=== PATIENT | female | born 1955 | race Asian ===

== ENCOUNTER 2016-09-13 16:52 | Inpatient (IN) | payer MEDICARE, OTHER ==
[~2016-09-13] VITALS: Ht 152.4 cm; Wt 59.0 kg
[2016-09-13] MEDS ORDERED: INSU100C6 SQ (17:11)
[2016-09-13] MEDS ORDERED: METF500T4 PO (17:11)
[2016-09-13] MEDS ORDERED: LOSA50TA37 PO (17:11)
[2016-09-13] MEDS ORDERED: CARV6 PO (17:11)
[2016-09-13] MEDS ORDERED: POTA8CAP10 PO (17:11)
[2016-09-13] MEDS ORDERED: FURO40 PO (17:11)
[2016-09-13] MEDS ORDERED: ASPI81 PO (17:11)
[2016-09-13 17:12] LABS: GLUCOSE,POINT OF CARE 190 MG/DL (70-110)
[2016-09-13] MEDS ORDERED: ACETAMINOPHEN 500 MG TABLET PO ONE (17:15)
[2016-09-13 17:27] LABS: APPEARANCE,URINE CLEAR (CLEAR); GLUCOSE, URINE (UA) NEGATIVE (NEGATIVE); KETONES,URINE NEGATIVE (NEGATIVE); LEUKOCYTE ESTERASE ,URINE TRACE (NEGATIVE); OCCULT BLOOD,URINE MODERATE (NEGATIVE); PROTEIN,URINE POS 1+ (NEGATIVE)
[2016-09-13] MEDS ORDERED: SODIUM CHLORIDE 0.9% 1,000 ML IV ONE ×2 (17:45→18:30)
[2016-09-13 17:47] LABS: SQUAMOUS EPITHELIAL CELL,UR Few /LPF (None Seen)
[2016-09-13 17:56] LABS: ANION GAP 12 mmol/L (8-16); CALCIUM, TOTAL 8.8 mg/dL (8.8-10.5); CARBON DIOXIDE 24 mmol/L (22-29); CHLORIDE 101 mmol/L (98-107); CREATININE 0.88 mg/dL (0.60-1.30); GLOMERULAR FILTR. RATE CALC > 60 mL/min (>60); POTASSIUM 4.2 mmol/L (3.5-5.1); SODIUM SERUM 137 mmol/L (136-145); UREA NITROGEN, BLOOD 23 mg/dL (7-18)
[2016-09-13 18:00] LABS: HEMATOCRIT 26.4 % (36-46); HEMOGLOBIN 8.5 g/dL (12.0-16.0); MEAN CORPUSCULAR HEMOGLOBIN 23.4 pg (26.0-34.0); MEAN CORPUSCULAR HGB CONC 32.1 G/dL (31.0-37.0); MEAN CORPUSCULAR VOLUME 73 fL (80-100); PLATELET COUNT (AUTO) 414 K/uL (150-450); RED BLOOD CELL COUNT(AUTO) 3.62 MIL/uL (4.00-5.20); RED CELL DISTRIBUTION WIDTH 17.3 % (11.5-14.5); WHITE BLOOD COUNT (AUTO) 29.6 K/uL (4.5-11.0)
[2016-09-13 18:03] LABS: INFLUENZA TYPE B NEGATIVE FOR TYPE B (NEGATIVE)
[2016-09-13 18:03] LABS: ALANINE AMINOTRANSFERASE 21 U/L (12-78); ALBUMIN 2.2 g/dL (3.4-5.0); ASPARTATE AMINOTRANSFERASE 18 U/L (15-37); BILIRUBIN,TOTAL 0.8 mg/dL (0.1-1.0); TOTAL PROTEIN, SERUM 8.2 g/dL (6.4-8.2)
[2016-09-13] MEDS ORDERED: CefTRIAXone 1 GM/DEXTROSE 50 ML IV ONE (18:30)
[2016-09-13] MEDS ORDERED: AZITHROMYCIN 500 MG/NS 250 ML IV ONE (18:30)
[2016-09-13 18:35] LABS: BAND NEUTROPHILS % (MANUAL) 41 % (1-5); EOSINOPHILS % (MANUAL) 1 % (1-6); LYMPHOCYTES % (MANUAL) 3 % (22-44); METAMYELOCYTES % 2 % (0-0); MYELOCYTES % 3 % (0-0); TOTAL CELLS COUNTED 100
[2016-09-13 18:36] LABS: WBC MORPHOLOGY TOXIC VACUOLATION
[2016-09-13 18:37] LABS: RBC MORPHOLOGY COMMENT ABNORMAL R
[2016-09-13] MEDS ORDERED: 0.9% SODIUM CHLORIDE 10 ML SYRINGE IVP PRN (19:30)
[2016-09-13] MEDS ORDERED: ONDANSETRON HCL 4 MG/2 ML VIAL IVP PRN (19:30)
[2016-09-13] MEDS ORDERED: ACETAMINOPHEN 325 MG TABLET PO PRN (19:30)
[2016-09-13 21:26] VITALS: BP 104/58
[2016-09-13] MEDS ORDERED: PNEUMOCOCCAL VACCINE POLYVALENT 0.5 ML VIAL [PPSV23] IM ONE (21:30)
[2016-09-13 22:17] LABS: GLUCOSE,POINT OF CARE 107 MG/DL (70-110)
[2016-09-13] MEDS ORDERED: DEXTROSE 50%-WATER 25 GM/50 ML SYRINGE IVP PRN (23:30)
[2016-09-14 00:34] VITALS: BP 112/73
[2016-09-14] MEDS ORDERED: 0.9% SODIUM CHLORIDE 10 ML SYRINGE IVP PRN (02:15)
[2016-09-14] MEDS ORDERED: DEXTROSE 50%-WATER 25 GM/50 ML SYRINGE IVP PRN (02:15)
[2016-09-14] MEDS ORDERED: ONDANSETRON HCL 4 MG/2 ML VIAL IVP PRN (02:15)
[2016-09-14] MEDS ORDERED: OxyCODONE HCL/ACETAMINOPHEN 5-325 MG TABLET PO PRN ×2 (02:15)
[2016-09-14] MEDS ORDERED: INSULIN ASPART 100 UNITS/ML SQ PRN (02:15)
[2016-09-14 05:01] VITALS: BP 122/76
[2016-09-14 05:27] LABS: GLUCOSE COMMENT 1 Received Meds; GLUCOSE,POINT OF CARE 134 MG/DL (70-110)
[2016-09-14 07:04] VITALS: BP 112/63
[2016-09-14] MEDS: ASPIRIN 81 MG CHEWABLE TABLET PO SCH (08:22)
[2016-09-14] MEDS: POTASSIUM CHLORIDE 8 MEQ ER TABLET PO SCH ×2 (08:22→21:00)
[2016-09-14] MEDS: CARVEDILOL 6.25 MG TABLET PO SCH ×2 (08:22→21:00)
[2016-09-14] MEDS: DOCUSATE SODIUM 100 MG CAPSULE PO SCH ×2 (08:22→21:00)
[2016-09-14] MEDS: PANTOPRAZOLE SODIUM 40 MG/VIAL IVP SCH (08:23)
[2016-09-14] MEDS ORDERED: FUROSEMIDE 40 MG TABLET PO SCH (09:00)
[2016-09-14] MEDS ORDERED: LOSARTAN POTASSIUM 50 MG TABLET PO SCH (09:00)
[2016-09-14] MEDS ORDERED: SODIUM CHLORIDE 0.9% 1,000 ML IV ONE (09:15)
[2016-09-14 11:20] VITALS: BP 102/48
[2016-09-14] MEDS: INSULIN ASPART 100 UNITS/ML SQ PRN ×2 (14:10→17:53)
[2016-09-14 14:57] LABS: GLUCOSE,POINT OF CARE 90 MG/DL (70-110)
[2016-09-14 15:36] VITALS: BP 122/64
[2016-09-14] MEDS: CefTRIAXone 1 GM/DEXTROSE 50 ML IV SCH (17:41)
[2016-09-14 18:02] LABS: GLUCOSE,POINT OF CARE 136 MG/DL (70-110)
[2016-09-14] MEDS: AZITHROMYCIN 500 MG/NS 250 ML IV SCH (18:23)
[2016-09-14 19:33] VITALS: BP 98/58
[2016-09-14 22:57] LABS: GLUCOSE,POINT OF CARE 138 MG/DL (70-110)
[2016-09-15] VITALS (7 sets, daily range): BP systolic 120–142; BP diastolic 65–89
[2016-09-15 05:18] LABS: GLUCOSE,POINT OF CARE 113 MG/DL (70-110)
[2016-09-15 06:47] LABS: HEMATOCRIT 22.8 % (36-46); HEMOGLOBIN 7.7 g/dL (12.0-16.0); MEAN CORPUSCULAR HEMOGLOBIN 24.4 pg (26.0-34.0); MEAN CORPUSCULAR HGB CONC 33.7 G/dL (31.0-37.0); MEAN CORPUSCULAR VOLUME 72 fL (80-100); PLATELET COUNT (AUTO) 407 K/uL (150-450); RED BLOOD CELL COUNT(AUTO) 3.15 MIL/uL (4.00-5.20); RED CELL DISTRIBUTION WIDTH 17.5 % (11.5-14.5); WHITE BLOOD COUNT (AUTO) 19.7 K/uL (4.5-11.0)
[2016-09-15 06:55] LABS: ANION GAP 12 mmol/L (8-16); CALCIUM, TOTAL 7.7 mg/dL (8.8-10.5); CARBON DIOXIDE 22 mmol/L (22-29); CHLORIDE 105 mmol/L (98-107); CREATININE 0.74 mg/dL (0.60-1.30); GLOMERULAR FILTR. RATE CALC > 60 mL/min (>60); POTASSIUM 3.9 mmol/L (3.5-5.1); SODIUM SERUM 139 mmol/L (136-145); UREA NITROGEN, BLOOD 15 mg/dL (7-18)
[2016-09-15 08:19] LABS: BAND NEUTROPHILS % (MANUAL) 21 % (1-5); LYMPHOCYTES % (MANUAL) 11 % (22-44); METAMYELOCYTES % 1 % (0-0); RBC MORPHOLOGY COMMENT ABNORMAL RBC MORPH; TOTAL CELLS COUNTED 100
[2016-09-15] MEDS: CARVEDILOL 6.25 MG TABLET PO SCH ×2 (09:12→20:02)
[2016-09-15] MEDS: ASPIRIN 81 MG CHEWABLE TABLET PO SCH (09:12)
[2016-09-15] MEDS: DOCUSATE SODIUM 100 MG CAPSULE PO SCH ×2 (09:12→20:01)
[2016-09-15] MEDS: PANTOPRAZOLE SODIUM 40 MG/VIAL IVP SCH (09:12)
[2016-09-15] MEDS: POTASSIUM CHLORIDE 8 MEQ ER TABLET PO SCH ×2 (09:13→20:05)
[2016-09-15 11:57] LABS: GLUCOSE,POINT OF CARE 132 MG/DL (70-110)
[2016-09-15] MEDS: SOD FERRIC GLUC COMPLX/SUCROSE 125 MG in SODIUM CHLORIDE 0.9% 100 ML IV SCH (15:50)
[2016-09-15] MEDS: CefTRIAXone 1 GM/DEXTROSE 50 ML IV SCH (18:05)
[2016-09-15 18:07] LABS: GLUCOSE,POINT OF CARE 132 MG/DL (70-110)
[2016-09-15] MEDS: AZITHROMYCIN 500 MG/NS 250 ML IV SCH (18:09)
[2016-09-15 20:27] LABS: GLUCOSE,POINT OF CARE 170 MG/DL (70-110)
[2016-09-16] VITALS (8 sets, daily range): BP systolic 105–139; BP diastolic 52–95
[2016-09-16 05:23] LABS: GLUCOSE,POINT OF CARE 160 MG/DL (70-110)
[2016-09-16 05:52] LABS: HEMATOCRIT 25.4 % (36-46); HEMOGLOBIN 8.1 g/dL (12.0-16.0); MEAN CORPUSCULAR HEMOGLOBIN 23.6 pg (26.0-34.0); MEAN CORPUSCULAR HGB CONC 31.9 G/dL (31.0-37.0); MEAN CORPUSCULAR VOLUME 74 fL (80-100); PLATELET COUNT (AUTO) 475 K/uL (150-450); RED BLOOD CELL COUNT(AUTO) 3.42 MIL/uL (4.00-5.20); RED CELL DISTRIBUTION WIDTH 17.5 % (11.5-14.5); WHITE BLOOD COUNT (AUTO) 23.7 K/uL (4.5-11.0)
[2016-09-16 07:55] LABS: RBC MORPHOLOGY COMMENT ABNORMAL RBC MORPH
[2016-09-16 07:58] LABS: BAND NEUTROPHILS % (MANUAL) 13 % (1-5); LYMPHOCYTES % (MANUAL) 21 % (22-44); TOTAL CELLS COUNTED 100
[2016-09-16 08:03] LABS: METAMYELOCYTES % 1 % (0-0); MYELOCYTES % 2 % (0-0)
[2016-09-16 08:04] LABS: WBC MORPHOLOGY TOXIC GRANULATION
[2016-09-16] MEDS: POTASSIUM CHLORIDE 8 MEQ ER TABLET PO SCH ×3 (09:00→21:00)
[2016-09-16] MEDS: DOCUSATE SODIUM 100 MG CAPSULE PO SCH ×2 (09:00→21:00)
[2016-09-16] MEDS: ASPIRIN 81 MG CHEWABLE TABLET PO SCH (09:02)
[2016-09-16] MEDS: PANTOPRAZOLE SODIUM 40 MG/VIAL IVP SCH (09:02)
[2016-09-16] MEDS: CARVEDILOL 6.25 MG TABLET PO SCH ×2 (09:02→20:20)
[2016-09-16 12:02] LABS: GLUCOSE,POINT OF CARE 201 MG/DL (70-110)
[2016-09-16] MEDS: INSULIN ASPART 100 UNITS/ML SQ PRN ×3 (12:34→20:21)
[2016-09-16] MEDS: SOD FERRIC GLUC COMPLX/SUCROSE 125 MG in SODIUM CHLORIDE 0.9% 100 ML IV SCH (15:20)
[2016-09-16] MEDS ORDERED: SODIUM CHLORIDE 0.9% 500 ML IV ONE (17:36)
[2016-09-16] MEDS: CefTRIAXone 1 GM/DEXTROSE 50 ML IV SCH (17:39)
[2016-09-16] MEDS: AZITHROMYCIN 500 MG/NS 250 ML IV SCH (18:27)
[2016-09-16 18:32] LABS: GLUCOSE,POINT OF CARE 155 MG/DL (70-110)
[2016-09-16 21:17] LABS: GLUCOSE COMMENT 1 Received Meds; GLUCOSE,POINT OF CARE 199 MG/DL (70-110)
[2016-09-17 05:01] VITALS: BP 119/64
[2016-09-17 06:32] LABS: GLUCOSE,POINT OF CARE 102 MG/DL (70-110)
[2016-09-17 06:46] LABS: ALANINE AMINOTRANSFERASE 62 U/L (12-78); ALBUMIN 1.8 g/dL (3.4-5.0); ANION GAP 9 mmol/L (8-16); ASPARTATE AMINOTRANSFERASE 70 U/L (15-37); BILIRUBIN,TOTAL 0.7 mg/dL (0.1-1.0); CARBON DIOXIDE 25 mmol/L (22-29); CHLORIDE 108 mmol/L (98-107); CREATININE 0.61 mg/dL (0.60-1.30); GLOMERULAR FILTR. RATE CALC > 60 mL/min (>60); POTASSIUM 4.1 mmol/L (3.5-5.1); SODIUM SERUM 142 mmol/L (136-145); TOTAL PROTEIN, SERUM 7.3 g/dL (6.4-8.2); UREA NITROGEN, BLOOD 9 mg/dL (7-18)
[2016-09-17 06:52] LABS: BASOPHILS % (AUTO) 0.2 % (0.0-2.0); EOSINOPHILS % (AUTO) 0.9 % (1.0-6.0); HEMATOCRIT 24.2 % (36-46); HEMOGLOBIN 7.6 g/dL (12.0-16.0); LYMPHOCYTES # (AUTO) 3.4 K/uL (1.0-4.8); MEAN CORPUSCULAR HEMOGLOBIN 23.3 pg (26.0-34.0); MEAN CORPUSCULAR HGB CONC 31.2 G/dL (31.0-37.0); MEAN CORPUSCULAR VOLUME 75 fL (80-100); MONOCYTES # (AUTO) 1.3 K/uL (0.1-1.0); NEUTROPHILS # (AUTO) 16.2 K/uL (1.8-7.7); NEUTROPHILS % (AUTO) 76.9 % (40.0-70.0); PLATELET COUNT (AUTO) 441 K/uL (150-450); RED BLOOD CELL COUNT(AUTO) 3.25 MIL/uL (4.00-5.20); RED CELL DISTRIBUTION WIDTH 17.6 % (11.5-14.5); WHITE BLOOD COUNT (AUTO) 21.1 K/uL (4.5-11.0)
[2016-09-17 07:51] VITALS: BP 140/76
[2016-09-17 08:36] LABS: RBC MORPHOLOGY COMMENT ABNORMAL RBC MORPH
[2016-09-17] MEDS: PANTOPRAZOLE SODIUM 40 MG/VIAL IVP SCH (08:44)
[2016-09-17] MEDS: DOCUSATE SODIUM 100 MG CAPSULE PO SCH ×2 (09:00→21:00)
[2016-09-17] MEDS: POTASSIUM CHLORIDE 8 MEQ ER TABLET PO SCH ×2 (09:01→21:00)
[2016-09-17] MEDS: CARVEDILOL 6.25 MG TABLET PO SCH ×2 (09:02→20:16)
[2016-09-17] MEDS: ASPIRIN 81 MG CHEWABLE TABLET PO SCH (09:02)
[2016-09-17 11:19] VITALS: BP 124/70
[2016-09-17 11:52] LABS: GLUCOSE,POINT OF CARE 127 MG/DL (70-110)
[2016-09-17] MEDS ORDERED: SODIUM CHLORIDE 0.9% 1,000 ML IV ONE (12:00)
[2016-09-17] MEDS ORDERED: BARIUM SULFATE 0.1% SUSPENSION 450 ML BOTTLE ONE (13:39)
[2016-09-17] MEDS ORDERED: IOVERSOL 320 MG/ML 100 ML VIAL ONE (13:39)
[2016-09-17] MEDS ORDERED: SODIUM CHLORIDE 0.9% 100 ML ONE (13:39)
[2016-09-17 15:28] VITALS: BP 137/81
[2016-09-17 17:22] LABS: GLUCOSE,POINT OF CARE 147 MG/DL (70-110)
[2016-09-17] MEDS: SOD FERRIC GLUC COMPLX/SUCROSE 125 MG in SODIUM CHLORIDE 0.9% 100 ML IV SCH (17:59)
[2016-09-17] MEDS: CefTRIAXone 1 GM/DEXTROSE 50 ML IV SCH (17:59)
[2016-09-17] MEDS: AZITHROMYCIN 500 MG/NS 250 ML IV SCH (18:35)
[2016-09-17 20:16] VITALS: BP 121/68
[2016-09-17] MEDS: INSULIN ASPART 100 UNITS/ML SQ PRN (20:21)
[2016-09-17] MEDS ORDERED: VANCOMYCIN HCL 1.25 GM in DEXTROSE 5%-WATER 250 ML IV ONE (22:00)
[2016-09-17 23:14] VITALS: BP 145/82
[2016-09-18 05:04] VITALS: BP 126/63
[2016-09-18 05:38] LABS: GLUCOSE,POINT OF CARE 199 MG/DL (70-110)
[2016-09-18 06:11] LABS: BASOPHILS % (AUTO) 0.3 % (0.0-2.0); EOSINOPHILS % (AUTO) 1.3 % (1.0-6.0); HEMATOCRIT 24.8 % (36-46); HEMOGLOBIN 7.8 g/dL (12.0-16.0); LYMPHOCYTES # (AUTO) 3.4 K/uL (1.0-4.8); LYMPHOCYTES % (AUTO) 16.1 % (22.0-44.0); MEAN CORPUSCULAR HEMOGLOBIN 23.9 pg (26.0-34.0); MEAN CORPUSCULAR HGB CONC 31.3 G/dL (31.0-37.0); MEAN CORPUSCULAR VOLUME 76 fL (80-100); MONOCYTES % (AUTO) 4.8 % (2.0-9.0); NEUTROPHILS # (AUTO) 16.3 K/uL (1.8-7.7); NEUTROPHILS % (AUTO) 77.5 % (40.0-70.0); PLATELET COUNT (AUTO) 496 K/uL (150-450); RED BLOOD CELL COUNT(AUTO) 3.24 MIL/uL (4.00-5.20); RED CELL DISTRIBUTION WIDTH 17.7 % (11.5-14.5)
[2016-09-18 06:35] LABS: ALANINE AMINOTRANSFERASE 50 U/L (12-78); ALBUMIN 1.9 g/dL (3.4-5.0); ANION GAP 9 mmol/L (8-16); ASPARTATE AMINOTRANSFERASE 38 U/L (15-37); BILIRUBIN,TOTAL 0.6 mg/dL (0.1-1.0); CALCIUM, TOTAL 7.9 mg/dL (8.8-10.5); CARBON DIOXIDE 26 mmol/L (22-29); CHLORIDE 105 mmol/L (98-107); CREATININE 0.73 mg/dL (0.60-1.30); GLOMERULAR FILTR. RATE CALC > 60 mL/min (>60); POTASSIUM 3.9 mmol/L (3.5-5.1); SODIUM SERUM 140 mmol/L (136-145); TOTAL PROTEIN, SERUM 7.2 g/dL (6.4-8.2); UREA NITROGEN, BLOOD 6 mg/dL (7-18)
[2016-09-18 06:57] LABS: GLUCOSE COMMENT 1 Received Meds; GLUCOSE,POINT OF CARE 145 MG/DL (70-110)
[2016-09-18 07:02] VITALS: BP 117/63
[2016-09-18 07:31] LABS: RBC MORPHOLOGY COMMENT ABNORMAL RBC MORPH
[2016-09-18] MEDS ORDERED: VANCOMYCIN HCL 1.25 GM in DEXTROSE 5%-WATER 250 ML IV SCH (08:00)
[2016-09-18] MEDS: CARVEDILOL 6.25 MG TABLET PO SCH ×2 (08:06→20:16)
[2016-09-18] MEDS: ASPIRIN 81 MG CHEWABLE TABLET PO SCH (08:06)
[2016-09-18] MEDS: PANTOPRAZOLE SODIUM 40 MG/VIAL IVP SCH (08:07)
[2016-09-18] MEDS: DOCUSATE SODIUM 100 MG CAPSULE PO SCH ×2 (08:07→21:00)
[2016-09-18] MEDS: POTASSIUM CHLORIDE 8 MEQ ER TABLET PO SCH ×2 (08:43→20:16)
[2016-09-18] MEDS: SODIUM CHLORIDE 0.9% 1,000 ML IV SCH (08:43)
[2016-09-18] MEDS ORDERED: VANCOMYCIN HCL 1 GM/D5% WATER 200 ML IV ONE (09:00)
[2016-09-18 10:04] LABS: BAND NEUTROPHILS % (MANUAL) 2 % (1-5); EOSINOPHILS % (MANUAL) 1 % (1-6); LYMPHOCYTES % (MANUAL) 8 % (22-44); MYELOCYTES % 1 % (0-0); TOTAL CELLS COUNTED 100
[2016-09-18 11:47] VITALS: BP 141/78
[2016-09-18 11:52] LABS: GLUCOSE,POINT OF CARE 187 MG/DL (70-110)
[2016-09-18] MEDS: SOD FERRIC GLUC COMPLX/SUCROSE 125 MG in SODIUM CHLORIDE 0.9% 100 ML IV SCH (15:15)
[2016-09-18 15:51] VITALS: BP 155/81
[2016-09-18] MEDS: FUROSEMIDE 20 MG/2 ML VIAL IVP SCH (16:40)
[2016-09-18] MEDS: INSULIN ASPART 100 UNITS/ML SQ PRN ×2 (17:27→20:25)
[2016-09-18] MEDS: CefTRIAXone 1 GM/DEXTROSE 50 ML IV SCH (17:28)
[2016-09-18 17:37] LABS: GLUCOSE COMMENT 1 Received Meds; GLUCOSE,POINT OF CARE 185 MG/DL (70-110)
[2016-09-18] MEDS: AZITHROMYCIN 500 MG/NS 250 ML IV SCH (18:54)
[2016-09-18 19:14] VITALS: BP 127/75
[2016-09-18] MEDS: VANCOMYCIN HCL 1 GM/D5% WATER 200 ML IV SCH (20:16)
[2016-09-18 23:11] VITALS: BP 124/71
[2016-09-19 04:25] VITALS: BP 116/56
[2016-09-19 05:26] LABS: GLUCOSE COMMENT 1 Received Meds; GLUCOSE,POINT OF CARE 213 MG/DL (70-110)
[2016-09-19 05:54] LABS: HEMATOCRIT 25.5 % (36-46); HEMOGLOBIN 7.9 g/dL (12.0-16.0); MEAN CORPUSCULAR HEMOGLOBIN 23.7 pg (26.0-34.0); MEAN CORPUSCULAR VOLUME 76 fL (80-100); PLATELET COUNT (AUTO) 521 K/uL (150-450); RED BLOOD CELL COUNT(AUTO) 3.33 MIL/uL (4.00-5.20); RED CELL DISTRIBUTION WIDTH 17.1 % (11.5-14.5); WHITE BLOOD COUNT (AUTO) 14.5 K/uL (4.5-11.0)
[2016-09-19 06:13] LABS: ANION GAP 10 mmol/L (8-16); CALCIUM, TOTAL 8.3 mg/dL (8.8-10.5); CARBON DIOXIDE 25 mmol/L (22-29); CHLORIDE 106 mmol/L (98-107); CREATININE 0.59 mg/dL (0.60-1.30); GLOMERULAR FILTR. RATE CALC > 60 mL/min (>60); POTASSIUM 3.5 mmol/L (3.5-5.1); SODIUM SERUM 141 mmol/L (136-145); UREA NITROGEN, BLOOD 4 mg/dL (7-18)
[2016-09-19 07:53] VITALS: BP 126/77
[2016-09-19 08:38] LABS: BAND NEUTROPHILS % (MANUAL) 1 % (1-5); EOSINOPHILS % (MANUAL) 3 % (1-6); LYMPHOCYTES % (MANUAL) 10 % (22-44); TOTAL CELLS COUNTED 100
[2016-09-19 08:40] LABS: RBC MORPHOLOGY COMMENT ABNORMAL R
[2016-09-19] MEDS: DOCUSATE SODIUM 100 MG CAPSULE PO SCH ×2 (09:00→20:50)
[2016-09-19] MEDS: CARVEDILOL 6.25 MG TABLET PO SCH ×2 (09:52→20:43)
[2016-09-19] MEDS: POTASSIUM CHLORIDE 8 MEQ ER TABLET PO SCH ×2 (09:52→20:43)
[2016-09-19] MEDS: ASPIRIN 81 MG CHEWABLE TABLET PO SCH (09:52)
[2016-09-19] MEDS: PANTOPRAZOLE SODIUM 40 MG/VIAL IVP SCH (09:52)
[2016-09-19] MEDS: FUROSEMIDE 20 MG/2 ML VIAL IVP SCH (09:52)
[2016-09-19] MEDS: VANCOMYCIN HCL 1 GM/D5% WATER 200 ML IV SCH ×2 (09:53→20:43)
[2016-09-19] MEDS: SODIUM CHLORIDE 0.9% 1,000 ML IV SCH (09:54)
[2016-09-19 11:00] VITALS: BP 117/55
[2016-09-19 13:37] LABS: GLUCOSE,POINT OF CARE 105 MG/DL (70-110)
[2016-09-19 13:37] LABS: GLUCOSE,POINT OF CARE 166 MG/DL (70-110)
[2016-09-19 15:20] VITALS: BP 128/79
[2016-09-19] MEDS: SOD FERRIC GLUC COMPLX/SUCROSE 125 MG in SODIUM CHLORIDE 0.9% 100 ML IV SCH (15:44)
[2016-09-19 16:02] LABS: ORGANISM ID Not indicated.
[2016-09-19] MEDS: CefTRIAXone 1 GM/DEXTROSE 50 ML IV SCH (17:06)
[2016-09-19 17:32] LABS: GLUCOSE,POINT OF CARE 119 MG/DL (70-110)
[2016-09-19] MEDS: AZITHROMYCIN 500 MG/NS 250 ML IV SCH (18:54)
[2016-09-19 19:58] VITALS: BP 134/84
[2016-09-19 20:57] LABS: GLUCOSE,POINT OF CARE 131 MG/DL (70-110)
[2016-09-20] VITALS (7 sets, daily range): BP systolic 101–155; BP diastolic 62–90
[2016-09-20 06:18] LABS: BASOPHILS % (AUTO) 0.5 % (0.0-2.0); EOSINOPHILS % (AUTO) 1.7 % (1.0-6.0); HEMATOCRIT 24.4 % (36-46); HEMOGLOBIN 7.7 g/dL (12.0-16.0); LYMPHOCYTES # (AUTO) 2.5 K/uL (1.0-4.8); LYMPHOCYTES % (AUTO) 20.6 % (22.0-44.0); MEAN CORPUSCULAR HEMOGLOBIN 24.7 pg (26.0-34.0); MEAN CORPUSCULAR HGB CONC 31.5 G/dL (31.0-37.0); MEAN CORPUSCULAR VOLUME 78 fL (80-100); MONOCYTES # (AUTO) 0.8 K/uL (0.1-1.0); MONOCYTES % (AUTO) 6.5 % (2.0-9.0); NEUTROPHILS # (AUTO) 8.6 K/uL (1.8-7.7); NEUTROPHILS % (AUTO) 70.7 % (40.0-70.0); PLATELET COUNT (AUTO) 487 K/uL (150-450); RED BLOOD CELL COUNT(AUTO) 3.12 MIL/uL (4.00-5.20); RED CELL DISTRIBUTION WIDTH 18.2 % (11.5-14.5); WHITE BLOOD COUNT (AUTO) 12.2 K/uL (4.5-11.0)
[2016-09-20 06:35] LABS: ANION GAP 8 mmol/L (8-16); CALCIUM, TOTAL 7.9 mg/dL (8.8-10.5); CARBON DIOXIDE 26 mmol/L (22-29); CHLORIDE 107 mmol/L (98-107); CREATININE 0.62 mg/dL (0.60-1.30); GLOMERULAR FILTR. RATE CALC > 60 mL/min (>60); POTASSIUM 3.2 mmol/L (3.5-5.1); SODIUM SERUM 141 mmol/L (136-145); UREA NITROGEN, BLOOD 5 mg/dL (7-18)
[2016-09-20 06:51] LABS: GLUCOSE,POINT OF CARE 93 MG/DL (70-110)
[2016-09-20] MEDS: VANCOMYCIN HCL 1 GM/D5% WATER 200 ML IV SCH ×3 (08:17→21:21)
[2016-09-20] MEDS: DOCUSATE SODIUM 100 MG CAPSULE PO SCH ×3 (08:17→21:00)
[2016-09-20] MEDS: POTASSIUM CHLORIDE 8 MEQ ER TABLET PO SCH ×2 (08:18→23:15)
[2016-09-20] MEDS: CARVEDILOL 6.25 MG TABLET PO SCH ×2 (08:18→23:14)
[2016-09-20] MEDS: PANTOPRAZOLE SODIUM 40 MG/VIAL IVP SCH (08:19)
[2016-09-20] MEDS: FUROSEMIDE 20 MG/2 ML VIAL IVP SCH (08:19)
[2016-09-20] MEDS: ASPIRIN 81 MG CHEWABLE TABLET PO SCH (08:20)
[2016-09-20] MEDS: SODIUM CHLORIDE 0.9% 1,000 ML IV SCH ×2 (08:28→14:31)
[2016-09-20 09:44] LABS: RBC MORPHOLOGY COMMENT ABNORMAL RBC MORPH
[2016-09-20] MEDS: INSULIN ASPART 100 UNITS/ML SQ PRN (11:59)
[2016-09-20 12:07] LABS: GLUCOSE,POINT OF CARE 113 MG/DL (70-110)
[2016-09-20] MEDS: SOD FERRIC GLUC COMPLX/SUCROSE 125 MG in SODIUM CHLORIDE 0.9% 100 ML IV SCH (14:24)
[2016-09-20] MEDS: FUROSEMIDE 20 MG/2 ML VIAL IVP ONE ×2 (16:00→16:45)
[2016-09-20] MEDS ORDERED: ACETAMINOPHEN 325 MG TABLET PO PRN (16:15)
[2016-09-20] MEDS ORDERED: LEVALBUTEROL HCL 1.25 MG/0.5 ML NEB SOLUTION NEB ONE (16:40)
[2016-09-20] MEDS ORDERED: IPRATROPIUM BROMIDE 0.5 MG/2.5 ML NEB SOLUTION NEB ONE (16:40)
[2016-09-20 16:57] LABS: GLUCOSE,POINT OF CARE 195 MG/DL (70-110)
[2016-09-20] MEDS ORDERED: ALBUTEROL SULFATE 5 MG/ML 20 ML NEB SOLN [BULK] NEB ONE (17:00)
[2016-09-20 17:22] LABS: ABG A-A DIFF O2 510.5 mmHg (10-20.0); ABG BASE EXCESS -6.6 mmol/L (-2.0-3.0); ABG OXYHEMOGLOBIN 96.9 % (94.0-100.0); ABG PCO2 56 mmHg (35-45); TEMPERATURE, FAHRENHEIT, BG 98.6 FAHREN (96.0-98.6)
[2016-09-20 17:23] LABS: ALLEN TEST, BLOOD GAS Positive; IPAP, BG 14 cm H2O
[2016-09-20 18:38] LABS: ANION GAP 14 mmol/L (8-16); CALCIUM, TOTAL 8.9 mg/dL (8.8-10.5); CARBON DIOXIDE 24 mmol/L (22-29); CHLORIDE 103 mmol/L (98-107); GLOMERULAR FILTR. RATE CALC > 60 mL/min (>60); POTASSIUM 3.6 mmol/L (3.5-5.1); SODIUM SERUM 141 mmol/L (136-145); UREA NITROGEN, BLOOD 8 mg/dL (7-18)
[2016-09-20 18:45] LABS: ALANINE AMINOTRANSFERASE 35 U/L (12-78); ALBUMIN 2.6 g/dL (3.4-5.0); ASPARTATE AMINOTRANSFERASE 36 U/L (15-37); BILIRUBIN,TOTAL 0.9 mg/dL (0.1-1.0); CREATINE KINASE, TOTAL 49 U/L (26-192)
[2016-09-20] MEDS: AZITHROMYCIN 500 MG/NS 250 ML IV SCH (18:48)
[2016-09-20 19:19] LABS: HEMATOCRIT 30.3 % (36-46); HEMOGLOBIN 9.4 g/dL (12.0-16.0); MEAN CORPUSCULAR HEMOGLOBIN 24.1 pg (26.0-34.0); MEAN CORPUSCULAR HGB CONC 31.1 G/dL (31.0-37.0); MEAN CORPUSCULAR VOLUME 78 fL (80-100); PLATELET COUNT (AUTO) 490 K/uL (150-450); RED BLOOD CELL COUNT(AUTO) 3.91 MIL/uL (4.00-5.20); RED CELL DISTRIBUTION WIDTH 18.7 % (11.5-14.5)
[2016-09-20 19:26] LABS: WHITE BLOOD COUNT (AUTO) 38.1 K/uL (4.5-11.0)
[2016-09-20 19:27] LABS: ABG A-A DIFF O2 372.2 mmHg (10-20.0); ABG BASE EXCESS -0.1 mmol/L (-2.0-3.0); ABG HCO3 24.8 mmol/L (22.0-26.0); ABG OXYHEMOGLOBIN 98.7 % (94.0-100.0); ABG PCO2 33 mmHg (35-45); ABG PH 7.473 (7.35-7.450); ALLEN TEST, BLOOD GAS Positive; TEMPERATURE, FAHRENHEIT, BG 98.6 FAHREN (96.0-98.6)
[2016-09-20 19:28] LABS: IPAP, BG 14 cm H2O
[2016-09-20 19:33] LABS: PROCALCITONIN (PCT) 0.68 ng/mL (<0.50)
[2016-09-20] MEDS ORDERED: FUROSEMIDE 20 MG/2 ML VIAL IVP ONE ×2 (19:45→19:46)
[2016-09-20] MEDS ORDERED: POTASSIUM CHL 10 MEQ/WATER 50 ML IV ONE (19:45)
[2016-09-20] MEDS: CefTRIAXone 1 GM/DEXTROSE 50 ML IV SCH (19:50)
[2016-09-20 19:53] LABS: BAND NEUTROPHILS % (MANUAL) 17 % (1-5); LYMPHOCYTES % (MANUAL) 3 % (22-44); TOTAL CELLS COUNTED 100
[2016-09-20 19:54] LABS: RBC MORPHOLOGY COMMENT ABNORMAL R
[2016-09-20] MEDS ORDERED: SODIUM CHLORIDE 0.9% 250 ML IV ONE (19:58)
[2016-09-20 20:57] LABS: GLUCOSE,POINT OF CARE 127 MG/DL (70-110)
[2016-09-20] MEDS: VANCOMYCIN HCL 1.25 GM in DEXTROSE 5%-WATER 250 ML IV SCH (21:22)
[2016-09-20 23:24] LABS: APPEARANCE,URINE CLEAR (CLEAR); GLUCOSE, URINE (UA) NEGATIVE (NEGATIVE); KETONES,URINE TRACE mg/dL (NEGATIVE); LEUKOCYTE ESTERASE ,URINE NEGATIVE (NEGATIVE); OCCULT BLOOD,URINE SMALL (NEGATIVE); PROTEIN,URINE NEGATIVE (NEGATIVE)
[2016-09-20 23:27] LABS: SQUAMOUS EPITHELIAL CELL,UR Few /LPF (None Seen)
[2016-09-21] VITALS: BP 95/51
[2016-09-21] MEDS: CEFEPIME HCL 2 GM in DEXTROSE 5%-WATER 50 ML IV SCH ×3 (00:39→15:25)
[2016-09-21 02:34] LABS: CREATINE KINASE, TOTAL 40 U/L (26-192)
[2016-09-21] MEDS: SODIUM CHLORIDE 0.9% 1,000 ML IV SCH (03:57)
[2016-09-21] MEDS: POTASSIUM CHL 10 MEQ/WATER 50 ML IV PRN ×3 (03:58→05:42)
[2016-09-21 04:00] VITALS: BP 106/49
[2016-09-21] MEDS: FUROSEMIDE 20 MG/2 ML VIAL IVP SCH ×2 (06:34→17:47)
[2016-09-21 07:17] LABS: GLUCOSE,POINT OF CARE 114 MG/DL (70-110)
[2016-09-21 08:00] VITALS: BP 112/57
[2016-09-21 08:18] LABS: HEMOGLOBIN 9.4 g/dL (12.0-16.0); MEAN CORPUSCULAR HEMOGLOBIN 24.4 pg (26.0-34.0); MEAN CORPUSCULAR HGB CONC 31.5 G/dL (31.0-37.0); MEAN CORPUSCULAR VOLUME 78 fL (80-100); PLATELET COUNT (AUTO) 519 K/uL (150-450); RED BLOOD CELL COUNT(AUTO) 3.87 MIL/uL (4.00-5.20)
[2016-09-21 08:24] LABS: WHITE BLOOD COUNT (AUTO) 38.4 K/uL (4.5-11.0)
[2016-09-21 08:41] LABS: ANION GAP 7 mmol/L (8-16); CALCIUM, TOTAL 8.6 mg/dL (8.8-10.5); CARBON DIOXIDE 31 mmol/L (22-29); CHLORIDE 103 mmol/L (98-107); CREATININE 0.71 mg/dL (0.60-1.30); GLOMERULAR FILTR. RATE CALC > 60 mL/min (>60); PHOSPHORUS 3.8 mg/dL (2.5-4.9); POTASSIUM 4.1 mmol/L (3.5-5.1); SODIUM SERUM 141 mmol/L (136-145); THYROID STIMULATING HORMONE 2.02 uIU/mL (0.36-3.74); UREA NITROGEN, BLOOD 8 mg/dL (7-18)
[2016-09-21] MEDS: CARVEDILOL 3.125 MG TABLET PO SCH ×2 (09:00→20:48)
[2016-09-21] MEDS: ASPIRIN 81 MG CHEWABLE TABLET PO SCH (09:00)
[2016-09-21] MEDS: LOSARTAN POTASSIUM 25 MG TABLET PO SCH ×3 (09:00→21:00)
[2016-09-21] MEDS: POTASSIUM CHLORIDE 8 MEQ ER TABLET PO SCH ×2 (09:00→20:48)
[2016-09-21] MEDS: DOCUSATE SODIUM 100 MG CAPSULE PO SCH ×3 (09:00→21:00)
[2016-09-21 09:05] LABS: BAND NEUTROPHILS % (MANUAL) 5 % (1-5); LYMPHOCYTES % (MANUAL) 6 % (22-44); TOTAL CELLS COUNTED 100
[2016-09-21] MEDS: VANCOMYCIN HCL 1.25 GM in DEXTROSE 5%-WATER 250 ML IV SCH ×2 (09:05→20:47)
[2016-09-21] MEDS: PANTOPRAZOLE SODIUM 40 MG/VIAL IVP SCH (09:05)
[2016-09-21 09:44] LABS: CREATINE KINASE, TOTAL 26 U/L (26-192)
[2016-09-21] MEDS ORDERED: MAGNESIUM SULFATE 2 GM in DEXTROSE 5%-WATER 50 ML IV ONE (09:45)
[2016-09-21 12:00] VITALS: BP 107/51
[2016-09-21] MEDS: SOD FERRIC GLUC COMPLX/SUCROSE 125 MG in SODIUM CHLORIDE 0.9% 100 ML IV SCH (14:13)
[2016-09-21] MEDS ORDERED: SODIUM CHLORIDE 0.9% 250 ML IV ONE (14:14)
[2016-09-21 16:00] VITALS: BP 124/53
[2016-09-21] MEDS: DOXYCYCLINE 100 MG in DEXTROSE 5%-WATER 100 ML IV SCH (17:47)
[2016-09-21 18:09] LABS: HEMATOCRIT 29.6 % (36-46); HEMOGLOBIN 9.4 g/dL (12.0-16.0); MEAN CORPUSCULAR HEMOGLOBIN 24.8 pg (26.0-34.0); MEAN CORPUSCULAR HGB CONC 31.9 G/dL (31.0-37.0); MEAN CORPUSCULAR VOLUME 78 fL (80-100); PLATELET COUNT (AUTO) 456 K/uL (150-450); RED BLOOD CELL COUNT(AUTO) 3.81 MIL/uL (4.00-5.20); RED CELL DISTRIBUTION WIDTH 20.6 % (11.5-14.5)
[2016-09-21 18:17] LABS: WHITE BLOOD COUNT (AUTO) 31.2 K/uL (4.5-11.0)
[2016-09-21 18:30] LABS: BASOPHILS % (MANUAL) 1 % (0-2); EOSINOPHILS % (MANUAL) 2 % (1-6); LYMPHOCYTES % (MANUAL) 12 % (22-44); TOTAL CELLS COUNTED 100
[2016-09-21 20:00] VITALS: BP 135/59
[2016-09-21] MEDS: INSULIN ASPART 100 UNITS/ML SQ PRN (20:51)
[2016-09-22] VITALS: BP 117/74
[2016-09-22] MEDS: CEFEPIME HCL 2 GM in DEXTROSE 5%-WATER 50 ML IV SCH ×3 (00:17→16:26)
[2016-09-22 04:00] VITALS: BP 135/68
[2016-09-22] MEDS: DOXYCYCLINE 100 MG in DEXTROSE 5%-WATER 100 ML IV SCH ×2 (05:21→16:26)
[2016-09-22] MEDS: FUROSEMIDE 20 MG/2 ML VIAL IVP SCH ×2 (05:21→16:26)
[2016-09-22 05:50] LABS: ALANINE AMINOTRANSFERASE 33 U/L (12-78); ALBUMIN 2.4 g/dL (3.4-5.0); ANION GAP 8 mmol/L (8-16); ASPARTATE AMINOTRANSFERASE 37 U/L (15-37); BILIRUBIN,TOTAL 0.9 mg/dL (0.1-1.0); CALCIUM, TOTAL 8.8 mg/dL (8.8-10.5); CARBON DIOXIDE 30 mmol/L (22-29); CHLORIDE 102 mmol/L (98-107); CREATININE 0.71 mg/dL (0.60-1.30); GLOMERULAR FILTR. RATE CALC > 60 mL/min (>60); POTASSIUM 3.2 mmol/L (3.5-5.1); SODIUM SERUM 140 mmol/L (136-145); TOTAL PROTEIN, SERUM 8.2 g/dL (6.4-8.2); UREA NITROGEN, BLOOD 7 mg/dL (7-18)
[2016-09-22] MEDS: POTASSIUM CHL 10 MEQ/WATER 50 ML IV PRN ×3 (06:18→09:21)
[2016-09-22 06:48] LABS: HEMATOCRIT 30.9 % (36-46); HEMOGLOBIN 9.9 g/dL (12.0-16.0); MEAN CORPUSCULAR HEMOGLOBIN 24.8 pg (26.0-34.0); MEAN CORPUSCULAR VOLUME 77 fL (80-100); PLATELET COUNT (AUTO) 473 K/uL (150-450); RED BLOOD CELL COUNT(AUTO) 3.99 MIL/uL (4.00-5.20); RED CELL DISTRIBUTION WIDTH 23.4 % (11.5-14.5)
[2016-09-22 08:00] VITALS: BP 143/76
[2016-09-22 08:17] LABS: GLUCOSE,POINT OF CARE 129 MG/DL (70-110)
[2016-09-22 08:18] LABS: GLUCOSE,POINT OF CARE 136 MG/DL (70-110)
[2016-09-22 08:22] LABS: GLUCOSE COMMENT 1 Received Meds; GLUCOSE,POINT OF CARE 197 MG/DL (70-110)
[2016-09-22 08:37] LABS: GLUCOSE,POINT OF CARE 112 MG/DL (70-110)
[2016-09-22] MEDS: VANCOMYCIN HCL 1.25 GM in DEXTROSE 5%-WATER 250 ML IV SCH ×2 (09:18→20:02)
[2016-09-22] MEDS: DOCUSATE SODIUM 100 MG CAPSULE PO SCH ×3 (09:19→21:24)
[2016-09-22] MEDS: LOSARTAN POTASSIUM 25 MG TABLET PO SCH ×2 (09:19→21:24)
[2016-09-22] MEDS: POTASSIUM CHLORIDE 8 MEQ ER TABLET PO SCH ×2 (09:19→21:25)
[2016-09-22] MEDS: PANTOPRAZOLE SODIUM 40 MG/VIAL IVP SCH (09:19)
[2016-09-22] MEDS: CARVEDILOL 3.125 MG TABLET PO SCH ×2 (09:19→21:24)
[2016-09-22] MEDS: ASPIRIN 81 MG CHEWABLE TABLET PO SCH (09:19)
[2016-09-22 10:09] LABS: BAND NEUTROPHILS % (MANUAL) 1 % (1-5); EOSINOPHILS % (MANUAL) 2 % (1-6); LYMPHOCYTES % (MANUAL) 10 % (22-44); TOTAL CELLS COUNTED 100
[2016-09-22 10:12] LABS: RBC MORPHOLOGY COMMENT ABNORMAL R
[2016-09-22 11:30] LABS: ABG BASE EXCESS 8.9 mmol/L (-2.0-3.0); ABG HCO3 32.1 mmol/L (22.0-26.0); ABG PCO2 39 mmHg (35-45); ABG PH 7.526 (7.35-7.450); TEMPERATURE, FAHRENHEIT, BG 98.2 FAHREN (96.0-98.6)
[2016-09-22 11:39] LABS: ALLEN TEST, BLOOD GAS Positive
[2016-09-22 12:00] VITALS: BP 119/66
[2016-09-22 16:00] VITALS: BP 121/65
[2016-09-22] MEDS: SOD FERRIC GLUC COMPLX/SUCROSE 125 MG in SODIUM CHLORIDE 0.9% 100 ML IV SCH (16:26)
[2016-09-22 20:00] VITALS: BP 107/48
[2016-09-22 20:52] LABS: GLUCOSE,POINT OF CARE 136 MG/DL (70-110)
[2016-09-22 20:57] LABS: GLUCOSE COMMENT 1 Received Meds; GLUCOSE,POINT OF CARE 165 MG/DL (70-110)
[2016-09-22] MEDS: INSULIN ASPART 100 UNITS/ML SQ PRN (22:04)
[2016-09-23] VITALS (7 sets, daily range): BP systolic 109–130; BP diastolic 60–76
[2016-09-23] MEDS: CEFEPIME HCL 2 GM in DEXTROSE 5%-WATER 50 ML IV SCH ×3 (00:17→17:24)
[2016-09-23 04:42] LABS: GLUCOSE COMMENT 1 Received Meds; GLUCOSE,POINT OF CARE 196 MG/DL (70-110)
[2016-09-23 04:42] LABS: GLUCOSE,POINT OF CARE 135 MG/DL (70-110)
[2016-09-23] MEDS ORDERED: SODIUM CHLORIDE 0.9% 250 ML IV ONE (05:42)
[2016-09-23] MEDS: FUROSEMIDE 20 MG/2 ML VIAL IVP SCH (05:46)
[2016-09-23] MEDS: DOXYCYCLINE 100 MG in DEXTROSE 5%-WATER 100 ML IV SCH ×2 (05:47→18:06)
[2016-09-23 05:56] LABS: BASOPHILS % (AUTO) 0.5 % (0.0-2.0); EOSINOPHILS % (AUTO) 2.6 % (1.0-6.0); HEMATOCRIT 35.1 % (36-46); HEMOGLOBIN 10.9 g/dL (12.0-16.0); LYMPHOCYTES # (AUTO) 2.9 K/uL (1.0-4.8); LYMPHOCYTES % (AUTO) 20.5 % (22.0-44.0); MEAN CORPUSCULAR HEMOGLOBIN 24.4 pg (26.0-34.0); MEAN CORPUSCULAR HGB CONC 30.9 G/dL (31.0-37.0); MEAN CORPUSCULAR VOLUME 79 fL (80-100); MONOCYTES % (AUTO) 7.3 % (2.0-9.0); NEUTROPHILS # (AUTO) 9.7 K/uL (1.8-7.7); NEUTROPHILS % (AUTO) 69.1 % (40.0-70.0); PLATELET COUNT (AUTO) 427 K/uL (150-450); RED BLOOD CELL COUNT(AUTO) 4.44 MIL/uL (4.00-5.20); RED CELL DISTRIBUTION WIDTH 25.2 % (11.5-14.5); WHITE BLOOD COUNT (AUTO) 14.1 K/uL (4.5-11.0)
[2016-09-23 06:19] LABS: ALANINE AMINOTRANSFERASE 28 U/L (12-78); ALBUMIN 2.6 g/dL (3.4-5.0); ANION GAP 3 mmol/L (8-16); ASPARTATE AMINOTRANSFERASE 27 U/L (15-37); BILIRUBIN,TOTAL 0.9 mg/dL (0.1-1.0); CALCIUM, TOTAL 9.3 mg/dL (8.8-10.5); CARBON DIOXIDE 30 mmol/L (22-29); CHLORIDE 100 mmol/L (98-107); CREATININE 0.75 mg/dL (0.60-1.30); GLOMERULAR FILTR. RATE CALC > 60 mL/min (>60); POTASSIUM 3.5 mmol/L (3.5-5.1); SODIUM SERUM 133 mmol/L (136-145); TOTAL PROTEIN, SERUM 8.9 g/dL (6.4-8.2); UREA NITROGEN, BLOOD 10 mg/dL (7-18)
[2016-09-23] MEDS: VANCOMYCIN HCL 1.25 GM in DEXTROSE 5%-WATER 250 ML IV SCH (08:06)
[2016-09-23] MEDS: PANTOPRAZOLE SODIUM 40 MG/VIAL IVP SCH (08:07)
[2016-09-23] MEDS: DOCUSATE SODIUM 100 MG CAPSULE PO SCH ×2 (08:07→20:50)
[2016-09-23] MEDS: CARVEDILOL 3.125 MG TABLET PO SCH ×2 (08:07→20:51)
[2016-09-23] MEDS: LOSARTAN POTASSIUM 25 MG TABLET PO SCH ×2 (08:07→20:51)
[2016-09-23] MEDS: POTASSIUM CHLORIDE 8 MEQ ER TABLET PO SCH ×2 (08:08→20:51)
[2016-09-23] MEDS ORDERED: FUROSEMIDE 40 MG/4 ML VIAL IVP SCH (09:00)
[2016-09-23] MEDS ORDERED: FUROSEMIDE 20 MG/2 ML VIAL IVP SCH (09:00)
[2016-09-23 09:43] LABS: RBC MORPHOLOGY COMMENT DIMORPHIC RBC
[2016-09-23 10:00] LABS: ABG A-A DIFF O2 27.2 mmHg (10-20.0); ABG BASE EXCESS 2.9 mmol/L (-2.0-3.0); ABG HCO3 27.1 mmol/L (22.0-26.0); ABG OXYHEMOGLOBIN 94.7 % (94.0-100.0); ABG PCO2 36 mmHg (35-45); ABG PH 7.481 (7.35-7.450); TEMPERATURE, FAHRENHEIT, BG 98.7 FAHREN (96.0-98.6)
[2016-09-23 10:01] LABS: ALLEN TEST, BLOOD GAS Positive
[2016-09-23] MEDS: INSULIN ASPART 100 UNITS/ML SQ PRN ×2 (11:40→18:05)
[2016-09-23] MEDS ORDERED: ASPIRIN 81 MG CHEWABLE TABLET PO SCH (14:15)
[2016-09-23] MEDS: SOD FERRIC GLUC COMPLX/SUCROSE 125 MG in SODIUM CHLORIDE 0.9% 100 ML IV SCH (14:59)
[2016-09-23 17:17] LABS: GLUCOSE COMMENT 1 Received Meds; GLUCOSE,POINT OF CARE 164 MG/DL (70-110)
[2016-09-24 00:03] VITALS: BP 116/63
[2016-09-24 04:34] VITALS: BP 134/67
[2016-09-24 06:16] LABS: BASOPHILS # (AUTO) 0.03 K/uL (0.00-0.20); BASOPHILS % (AUTO) 0.2 % (0.0-2.0); EOSINOPHILS # (AUTO) 0.29 K/uL (0.00-0.70); EOSINOPHILS % (AUTO) 1.95 % (1.0-6.0); HEMATOCRIT 32.9 % (36-46); HEMOGLOBIN 10.7 g/dL (12.0-16.0); LYMPHOCYTES # (AUTO) 2.7 K/uL (1.0-4.8); LYMPHOCYTES % (AUTO) 18.2 % (22.0-44.0); MEAN CORPUSCULAR HEMOGLOBIN 25.3 pg (26.0-34.0); MEAN CORPUSCULAR HGB CONC 32.5 G/dL (31.0-37.0); MEAN CORPUSCULAR VOLUME 78 fL (80-100); MONOCYTES # (AUTO) 1.2 K/uL (0.1-1.0); MONOCYTES % (AUTO) 8.2 % (2.0-9.0); NEUTROPHILS # (AUTO) 10.5 K/uL (1.8-7.7); NEUTROPHILS % (AUTO) 71.5 % (40.0-70.0); PLATELET COUNT (AUTO) 436 K/uL (150-450); RED BLOOD CELL COUNT(AUTO) 4.23 MIL/uL (4.00-5.20); RED CELL DISTRIBUTION WIDTH 25.5 % (11.5-14.5); WHITE BLOOD COUNT (AUTO) 14.7 K/uL (4.5-11.0)
[2016-09-24 06:32] LABS: ALANINE AMINOTRANSFERASE 24 U/L (12-78); ALBUMIN 2.6 g/dL (3.4-5.0); ANION GAP 9 mmol/L (8-16); ASPARTATE AMINOTRANSFERASE 21 U/L (15-37); BILIRUBIN,TOTAL 0.9 mg/dL (0.1-1.0); CALCIUM, TOTAL 9.3 mg/dL (8.8-10.5); CARBON DIOXIDE 28 mmol/L (22-29); CHLORIDE 99 mmol/L (98-107); CREATININE 0.84 mg/dL (0.60-1.30); GLOMERULAR FILTR. RATE CALC > 60 mL/min (>60); POTASSIUM 3.5 mmol/L (3.5-5.1); SODIUM SERUM 136 mmol/L (136-145); TOTAL PROTEIN, SERUM 8.8 g/dL (6.4-8.2); UREA NITROGEN, BLOOD 14 mg/dL (7-18)
[2016-09-24 07:25] VITALS: BP 124/73
[2016-09-24] MEDS ORDERED: VANCOMYCIN HCL 1.25 GM in DEXTROSE 5%-WATER 250 ML IV SCH (08:00)
[2016-09-24 08:48] LABS: RBC MORPHOLOGY COMMENT ABNORMAL RBC MORPH
[2016-09-24] MEDS: PANTOPRAZOLE SODIUM 40 MG/VIAL IVP SCH (08:57)
[2016-09-24] MEDS: DOCUSATE SODIUM 100 MG CAPSULE PO SCH ×2 (08:57→09:00)
[2016-09-24] MEDS: CARVEDILOL 3.125 MG TABLET PO SCH (08:58)
[2016-09-24] MEDS ORDERED: FUROSEMIDE 40 MG/4 ML VIAL IVP SCH (09:00)
[2016-09-24] MEDS ORDERED: ASPIRIN 81 MG CHEWABLE TABLET PO SCH (09:00)
[2016-09-24] MEDS: LOSARTAN POTASSIUM 25 MG TABLET PO SCH (09:02)
[2016-09-24] MEDS: POTASSIUM CHLORIDE 8 MEQ ER TABLET PO SCH (09:02)
[2016-09-24 11:52] VITALS: BP 114/57
[2016-09-24] MEDS: INSULIN ASPART 100 UNITS/ML SQ PRN (12:25)
[2016-09-24] MEDS: SOD FERRIC GLUC COMPLX/SUCROSE 125 MG in SODIUM CHLORIDE 0.9% 100 ML IV SCH (14:05)
== END 2016-09-24 15:30 | disposition home or self-care (01) | DRG 871 ==
LOC: EMS 16:53 → 6N 19:30 → ICU 09-20 17:30 → 5S 09-23 14:30
PROVIDERS: ADMIT Internal Medicine; ATTEND Internal Medicine
PROC: 5A09457 Assistance with Respiratory Ventilation, 24-96 Consecutive Hours, Continuous Positive Airway Pressure (ICD-10-PCS; principal; 2016-09-20)
DX: A41.2 Sepsis due to unspecified staphylococcus (principal); J18.9 Pneumonia, unspecified organism; E43 Unspecified severe protein-calorie malnutrition; K85.90 Acute pancreatitis without necrosis or infection, unspecified; J96.01 Acute respiratory failure with hypoxia; I50.21 Acute systolic (congestive) heart failure; J96.02 Acute respiratory failure with hypercapnia; I13.0 Hypertensive heart and chronic kidney disease with heart failure and stage 1 through stage 4 chronic kidney disease, or unspecified chronic kidney disease; I42.8 Other cardiomyopathies; K86.1 Other chronic pancreatitis; E11.22 Type 2 diabetes mellitus with diabetic chronic kidney disease; I25.10 Atherosclerotic heart disease of native coronary artery without angina pectoris; E78.00 Pure hypercholesterolemia, unspecified; K80.20 Calculus of gallbladder without cholecystitis without obstruction; D50.9 Iron deficiency anemia, unspecified; E87.6 Hypokalemia; K63.9 Disease of intestine, unspecified; N18.9 Chronic kidney disease, unspecified; Z91.19 Patient's noncompliance with other medical treatment and regimen; Z95.810 Presence of automatic (implantable) cardiac defibrillator; Z79.899 Other long term (current) drug therapy; Z79.82 Long term (current) use of aspirin; Z79.84 Long term (current) use of oral hypoglycemic drugs; Z79.4 Long term (current) use of insulin; Z98.890 Other specified postprocedural states; Z95.5 Presence of coronary angioplasty implant and graft; Z68.25 Body mass index [BMI] 25.0-25.9, adult; Z28.21 Immunization not carried out because of patient refusal
CPT/HCPCS: 71260; 72193; 74160; 76700; 82271; 82378; 82805; 82948; 82962; 83735; 84100; 84132; 84145; 84443; 85007; 86631; 86632; 86738; 87040; 87081; 87449; 87804; 87899; 93005; 93306; 94644; 94660; 96361; 96374; 96375; 99285; C9113; J0456; J0692; J0696; J1940; J2916; J3370; J3475; J3480; J3490; J7030; J7040; J7050; J7060